=== PATIENT | female | born 1950 | race African-American/Black ===

== ENCOUNTER → 2016-06-02 | Day surgery (SDC) | payer OTHER ==
[~2016-06-02] VITALS: Ht 165.1 cm; Wt 86.2 kg
[~2016-06-02] MED LIST: ASPIRIN EC81 M1 PO; GLUCOPHAGE1000 M1 PO; GLYBURIDE2.5 M1 PO; LIPITOR40 M1 PO; MATZIM LA180 MG PO; PENICILLIN V P500 M1 PO; PRINIVIL10 M1 PO
--- NOTE | 2016-06-02 11:53 | Operative Report ---
Operative/Inv Procedure Report Surgery Date: 06/02/16 Name of Procedure: Cystoscopy, left ureteroscopy, laser lithotripsy of left ureteral stone, exchange of left double-J ureteral stent Pre-Operative Diagnosis: Left ureteral calculus Post-Operative Diagnosis: Same Estimated Blood Loss: scant Surgeon/Lab Tester: Jose D GARVEY MD,BRENDA Mays Anesthesia: laryngeal mask airway Drains: 24 cm 6 Gambian left double-J ureteral stent with long suture attached Specimens: Urine culture and left ureteral stone fragment Complications: None Condition: Stable Operative Indication: This patient presented with intractable left flank pain due to a 7 mm left distal ureteral calculus. Initially a left double-J stent was placed and her pain resolved. She is now brought back to the hospital for definitive treatment of her left distal ureteral calculus Operative/Procedure Note Note: The patient was taken to the cystoscopy room and identified. She was placed in supine position on the cystoscopy table in a timeout was executed appropriately with the patient awake. Gen. anesthesia was induced via LMA. She was then placed in dorsolithotomy position and prepped and draped in usual fashion for cystoscopy. Surgical pause was executed appropriately. A fluoroscopy image was taken with a marker on the left side of the abdomen to confirm the correct side of surgery as well as the correct orientation of the fluoroscopy image. 22 Gambian cystoscope sheath could initially not be placed into the bladder due to some urethral stenosis. Urethra was dilated with sounds to 30 Gambian. The 22 Gambian cystoscope sheath was then placed into the bladder and cystoscopy formed. The bladder appeared normal other than some mild inflammation around the left ureteral orifice from the left double-J ureteral stent which was in place. A urine sample was sent for culture. Using a grasper the distal end of the stent was grasped and pulled out to the external urethral meatus. A sensor guidewire was placed through the stent and the stent removed. The rigid ureteroscope was advanced through the urethra into the bladder and into the left ureter. At the lower border of the SI joint the stone was visualized. The 400 holmium laser fiber was placed through the ureteroscope and the stone fragmented into multiple small fragments. At this point a 0 tip basket was placed through the ureteroscope. One of the fragments was grasped and pulled out. This was sent for stone analysis. The rigid ureteroscope was placed back into the left ureter. He was advanced all way up the left kidney. No further stone fragments were seen as the others had passed into the bladder. Some contrast was injected into the left kidney through the ureteroscope. Ureteroscope was then removed. The cystoscope was back loaded onto the safety guidewire. Under visual fluoroscopic control a 24 cm 6 Gambian double-J stent was placed. Fluoroscopy confirmed the proximal end coiled in the left renal collecting system and the distal end coiled in the bladder. A long suture was left attached the distal end of the stent exiting the urethra. Patient tolerated the procedure well. At its completion she was taken recovery room in stable condition. Findings: 7 mm left distal ureteral calculus Discharge Disposition: PACU
--- NOTE | 2016-06-02 18:17 | RADIOLOGY REPORT ---
EXAMINATION: XR ABDOMEN CLINICAL INDICATION: Left-sided cystoscopy, ureteroscopy, retrograde pyelogram, and stent exchange in OR. COMPARISON: 03/31/2016 TECHNIQUE: Total fluoroscopic time 14 seconds. 5 procedural fluoroscopic images of the abdomen were provided. FINDINGS: Initial image demonstrates a scope overlying the bladder. There is a left ureteral stent in place. Subsequent images demonstrate a stent exchange with contrast filling the collecting system. There is mild fullness of the collecting system. IMPRESSION: Left ureteral stent exchange. Mild fullness of the left collecting system.
== END ==
LOC: STS 04:08
DX: N20.1 Calculus of ureter (principal); Z87.442 Personal history of urinary calculi; E11.9 Type 2 diabetes mellitus without complications; Z79.84 Long term (current) use of oral hypoglycemic drugs
CPT/HCPCS: 74000; 82355; 87086; C2617; J0690; J2250; J2405